=== PATIENT | female | born 2005 | race Caucasian/White ===

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

== ENCOUNTER 2024-06-24 19:58 | Emergency (ER) | payer BC ==
[2024-06-24] MEDS: Ketorolac 30 MG/ML SDV IM ONE (20:57)
[2024-06-24] MEDS: Acetaminophen 500 MG Tab PO ONE (20:59)
[2024-06-24] MEDS: Ondansetron 4 MG Tab.DIS PO ONE (21:10)
[2024-06-24] MEDS: Take Home: Ondansetron 4 MG Tab.DIS, 5 Tab Pack PO ONE (21:10)
[2024-06-24] MEDS: Take Home: traMADol 50 MG, 4 Tab Pack PO ONE (21:10)
[2024-06-24 21:55] VITALS: BP 120/76; PULSE 69
== END 2024-06-24 21:30 | disposition home or self-care (01) ==
LOC: LL.ED 19:58
DX: S09.90XA Unspecified injury of head, initial encounter (principal); S89.91XA Unspecified injury of right lower leg, initial encounter; E66.9 Obesity, unspecified; Z88.2 Allergy status to sulfonamides; Z79.899 Other long term (current) drug therapy; V80.010A Animal-rider injured by fall from or being thrown from horse in noncollision accident, initial encounter
CPT/HCPCS: 72020; 73562-RT; 96372; 99283; 99284; A9270-GY; J1885; Q0162

== ENCOUNTER 2025-06-25 16:08 | Emergency (ER) | payer SELFPAY ==
[2025-06-25 16:17] VITALS: BP 109/68; PULSE 109
[2025-06-25] MEDS: Sodium Chloride 0.9% 10 ML Syringe FLUSH PRN (16:40)
[2025-06-25] MEDS: Ondansetron 4 MG/2 ML SDV IVPUSH ONE (17:00)
[2025-06-25] MEDS: Take Home: Acetaminophen/HYDROcodone 325-10 MG, 5 Tab Pack PO ONE ×2 (18:13)
== END 2025-06-25 18:24 | disposition home or self-care (01) ==
LOC: LL.ED 16:08
DX: S52.302A Unspecified fracture of shaft of left radius, initial encounter for closed fracture (principal); Z88.2 Allergy status to sulfonamides; Z79.899 Other long term (current) drug therapy; V80.010A Animal-rider injured by fall from or being thrown from horse in noncollision accident, initial encounter
CPT/HCPCS: 73090-LT; 73610-RT; 73630-RT; 96374; 96375; 96376; 99284; 99284-25; A9270-GY; J1171; J2405